=== PATIENT | male | born 1970 | race Caucasian/White ===

== ENCOUNTER 2022-03-01 16:45 | Emergency (ER) | payer OTHER, BC ==
[2022-03-01] MEDS ORDERED: Morphine 4 MG/ML VIAL ONE ×2 (19:47→19:48)
[2022-03-01] MEDS ORDERED: Ketorolac Tromethamine 30 MG/ML VIAL ONE (19:47)
[2022-03-01] MEDS ORDERED: methylPREDNISolone Sod Succ/PF 125 MG/2 ML VIAL ONE (19:47)
== END 2022-03-01 22:10 | disposition home or self-care (01) ==
LOC: ERS 16:45
DX: M54.50 Low back pain, unspecified (principal); I10 Essential (primary) hypertension; W01.0XXA Fall on same level from slipping, tripping and stumbling without subsequent striking against object, initial encounter
CPT/HCPCS: 72131; 96374; 96375; J1885; J2270; J2930